=== PATIENT | female | born 1995 | race Caucasian/White ===

== ENCOUNTER 2018-07-14 10:04 | Emergency (ER) | payer BC, OTHER ==
[2018-07-14] MEDS ORDERED: Lidocaine 1% (PF) 30 ML VIAL ONE (10:16)
[2018-07-14] MEDS ORDERED: Adacel (T-DAP) 0.5 ML SYRINGE ONE (10:46)
[2018-07-14] MEDS ORDERED: Bacitracin Zinc 1 Packet ONE (10:46)
[2018-07-14] MEDS ORDERED: Sulfameth/Trimethoprim DS 800-160mg TAB ONE (10:57)
[2018-07-14] MEDS ORDERED: metroNIDAZOLE 500 MG TAB ONE (10:57)
== END 2018-07-14 11:01 | disposition home or self-care (01) ==
LOC: NAV ERS 10:04
DX: S41.152A Open bite of left upper arm, initial encounter (principal); S41.112A Laceration without foreign body of left upper arm, initial encounter; S70.11XA Contusion of right thigh, initial encounter; F32.9 Major depressive disorder, single episode, unspecified; F90.9 Attention-deficit hyperactivity disorder, unspecified type; W54.0XXA Bitten by dog, initial encounter
CPT/HCPCS: 12004; 90471; 90715; J2001

== ENCOUNTER 2019-06-29 12:10 | Emergency (ER) | payer OTHER ==
[2019-06-29] MEDS ORDERED: Bacitracin 1 PK ONE ×2 (12:54)
== END 2019-06-29 13:06 | disposition home or self-care (01) ==
LOC: NAV ERS 12:10
DX: S61.552A Open bite of left wrist, initial encounter (principal); S40.812A Abrasion of left upper arm, initial encounter; F90.9 Attention-deficit hyperactivity disorder, unspecified type; F32.9 Major depressive disorder, single episode, unspecified; Z79.899 Other long term (current) drug therapy; W55.01XA Bitten by cat, initial encounter
CPT/HCPCS: 99283